=== PATIENT | male | born 1930 | race Caucasian/White ===

== ENCOUNTER 2016-04-17 13:05 | Outpatient (CLI) | payer MEDICARE, OTHER | END 2016-04-17 13:06 | disposition home or self-care (01) | DX: J44.9 Chronic obstructive pulmonary disease, unspecified (principal) ==

== ENCOUNTER 2016-04-29 07:02 | Outpatient (CLI) | payer MEDICARE, OTHER | END 2016-04-29 07:03 | disposition home or self-care (01) | DX: D64.9 Anemia, unspecified (principal); N18.3 Chronic kidney disease, stage 3 (moderate); I50.9 Heart failure, unspecified ==

== ENCOUNTER 2016-05-25 09:07 | Outpatient (CLI) | payer MEDICARE, OTHER | END 2016-05-25 09:08 | disposition home or self-care (01) | DX: I50.9 Heart failure, unspecified (principal) ==

== ENCOUNTER 2016-06-22 07:02 | Outpatient (CLI) | payer MEDICARE, OTHER | END 2016-06-22 07:03 | disposition home or self-care (01) | DX: C61 Malignant neoplasm of prostate (principal); Z79.01 Long term (current) use of anticoagulants; D64.9 Anemia, unspecified; I69.959 Hemiplegia and hemiparesis following unspecified cerebrovascular disease affecting unspecified side; I50.9 Heart failure, unspecified; M10.9 Gout, unspecified ==

== ENCOUNTER 2016-07-23 08:49 | Outpatient (CLI) | payer MEDICARE, OTHER | END 2016-07-23 08:50 | disposition home or self-care (01) | DX: I50.9 Heart failure, unspecified (principal); R06.00 Dyspnea, unspecified; Z79.01 Long term (current) use of anticoagulants ==

== ENCOUNTER 2016-09-28 15:38 | Outpatient (CLI) | payer MEDICARE, OTHER ==
[2016-09-28 12:14] LABS: CALCIUM 9.1 mg/dL (8.5-10.3); CREATININE 1.5 mg/dL (0.6-1.2); PHOSPHORUS 3.3 mg/dL (2.5-4.6); POTASSIUM 3.9 mmol/L (3.5-5.0)
== END 2016-09-28 15:39 | disposition home or self-care (01) ==
LOC: LAB.F 15:38
PROVIDERS: ATTEND Internal Medicine Nephrology
DX: D64.9 Anemia, unspecified (principal)
CPT/HCPCS: 36415; 80069; 83970; 85014; 85018

== ENCOUNTER 2016-10-07 11:08 | Outpatient (CLI) | payer MEDICARE, OTHER | END 2016-10-07 11:09 | disposition home or self-care (01) | LOC: LAB.F 11:08 | PROVIDERS: ATTEND Physician Assistant Medical | DX: Z79.01 Long term (current) use of anticoagulants (principal) | CPT/HCPCS: 85610 ==

== ENCOUNTER 2016-11-16 07:03 | Outpatient (CLI) | payer MEDICARE, OTHER | END 2016-11-16 07:04 | disposition home or self-care (01) | LOC: LAB 07:03 → LAB.F 07:04 | PROVIDERS: ATTEND Internal Medicine | DX: Z79.01 Long term (current) use of anticoagulants (principal) | CPT/HCPCS: 85610 ==

== ENCOUNTER 2016-12-16 08:25 | Outpatient (CLI) | payer MEDICARE, OTHER | END 2016-12-16 08:26 | disposition home or self-care (01) | LOC: LAB.F 08:25 | PROVIDERS: ATTEND Internal Medicine | DX: Z79.01 Long term (current) use of anticoagulants (principal); I69.959 Hemiplegia and hemiparesis following unspecified cerebrovascular disease affecting unspecified side | CPT/HCPCS: 85610 ==

== ENCOUNTER 2016-12-22 08:45 | Outpatient (CLI) | payer MEDICARE, OTHER ==
[2016-12-22 18:29] LABS: BASOPHILS % (AUTO) 0.8 %; EOSINOPHILS # (AUTO) 0.1 10^3/uL (0.0-0.7); EOSINOPHILS % (AUTO) 2.5 %; LYMPHOCYTES # (AUTO) 1.2 10^3/uL (1.5-3.5); LYMPHOCYTES % (AUTO) 20.7 %; MEAN CORPUSCULAR HEMOGLOBIN 29.4 pg (27.0-31.0); MEAN CORPUSCULAR HGB CONC 33.5 g/dL (32.0-36.0); MEAN CORPUSCULAR VOLUME 87.9 fL (80.0-94.0); MEAN PLATELET VOLUME 7.6 fL (7.4-11.4); MONOCYTES # (AUTO) 0.6 10^3/uL (0.0-1.0); MONOCYTES % (AUTO) 10.5 %; NEUTROPHILS # (AUTO) 3.8 10^3/uL (1.5-6.6); NEUTROPHILS % (AUTO) 65.5 %; NUCLEATED RED BLOOD CELLS AUTO 0.1 /100WBC; RED BLOOD COUNT 3.75 10^6/uL (4.70-6.10); RED CELL DISTRIBUTION WIDTH 15.2 % (12.0-15.0); UNCORRECTED WHITE BLOOD COUNT 5.8 x10^3/uL; WHITE BLOOD COUNT 5.8 x10^3/uL (4.8-10.8)
[2016-12-22 18:34] LABS: INR 1.7 (0.8-1.2); PT - PROTHROMBIN TIME 19.4 secs (9.9-12.6)
[2016-12-22 18:40] LABS: CALCIUM 8.6 mg/dL (8.5-10.3); CREATININE 1.3 mg/dL (0.6-1.2); POTASSIUM 3.8 mmol/L (3.5-5.0)
[2016-12-22 18:42] LABS: PARTIAL THROMBOPLASTIN TIME 31.2 secs (24.9-33.3)
[2016-12-23 10:45] LABS: IMMATURE RETIC FRACTION 0.47
== END 2016-12-22 08:46 | disposition home or self-care (01) ==
LOC: LAB.F 08:45
PROVIDERS: ATTEND Internal Medicine
DX: K92.1 Melena (principal); I10 Essential (primary) hypertension; D63.1 Anemia in chronic kidney disease
CPT/HCPCS: 36415; 80048; 82728; 83540; 84466; 85025; 85044; 85610; 85730

== ENCOUNTER 2017-01-12 07:53 | Outpatient (CLI) | payer MEDICARE, OTHER | END 2017-01-12 07:54 | disposition home or self-care (01) | LOC: LAB.F 07:53 | PROVIDERS: ATTEND Internal Medicine | DX: Z79.01 Long term (current) use of anticoagulants (principal); I69.959 Hemiplegia and hemiparesis following unspecified cerebrovascular disease affecting unspecified side | CPT/HCPCS: 85610 ==

== ENCOUNTER 2017-01-12 08:50 | Outpatient (CLI) | payer MEDICARE, OTHER ==
[2017-01-12 11:55] LABS: BASOPHILS % (AUTO) 0.6 %; EOSINOPHILS # (AUTO) 0.2 10^3/uL (0.0-0.7); EOSINOPHILS % (AUTO) 3.1 %; HCT - HEMATOCRIT 33.7 % (42.0-52.0); HGB - HEMOGLOBIN 11.4 g/dL (14.0-18.0); LYMPHOCYTES # (AUTO) 1.4 10^3/uL (1.5-3.5); MEAN CORPUSCULAR HEMOGLOBIN 29.5 pg (27.0-31.0); MEAN CORPUSCULAR HGB CONC 33.8 g/dL (32.0-36.0); MEAN CORPUSCULAR VOLUME 87.2 fL (80.0-94.0); MEAN PLATELET VOLUME 8.8 fL (7.4-11.4); MONOCYTES # (AUTO) 0.8 10^3/uL (0.0-1.0); MONOCYTES % (AUTO) 10.6 %; NEUTROPHILS # (AUTO) 5.1 10^3/uL (1.5-6.6); NEUTROPHILS % (AUTO) 67.7 %; NUCLEATED RED BLOOD CELLS AUTO 0.1 /100WBC; RED BLOOD COUNT 3.86 10^6/uL (4.70-6.10); RED CELL DISTRIBUTION WIDTH 16.1 % (12.0-15.0); UNCORRECTED WHITE BLOOD COUNT 7.6 x10^3/uL; WHITE BLOOD COUNT 7.6 x10^3/uL (4.8-10.8)
== END 2017-01-12 08:51 | disposition home or self-care (01) ==
LOC: LAB.F 08:50
PROVIDERS: ATTEND Internal Medicine
DX: K92.1 Melena (principal); Z79.01 Long term (current) use of anticoagulants; I69.959 Hemiplegia and hemiparesis following unspecified cerebrovascular disease affecting unspecified side
CPT/HCPCS: 36415; 85025; 85610

== ENCOUNTER 2017-01-25 09:16 | Outpatient (CLI) | payer MEDICARE, OTHER | END 2017-01-25 09:17 | disposition home or self-care (01) | LOC: LAB.F 09:16 | PROVIDERS: ATTEND Internal Medicine | DX: Z79.01 Long term (current) use of anticoagulants (principal); I69.959 Hemiplegia and hemiparesis following unspecified cerebrovascular disease affecting unspecified side | CPT/HCPCS: 85610 ==

== ENCOUNTER 2017-02-10 10:57 | Outpatient (CLI) | payer MEDICARE, OTHER | END 2017-02-10 10:58 | disposition home or self-care (01) | LOC: LAB.F 10:57 | PROVIDERS: ATTEND Physician Assistant Medical | DX: Z79.01 Long term (current) use of anticoagulants (principal); I50.9 Heart failure, unspecified | CPT/HCPCS: 85610 ==

== ENCOUNTER 2017-02-25 15:12 | Outpatient (CLI) | payer MEDICARE, OTHER ==
--- NOTE | 2017-02-26 09:52 | XRAY Report ---
TWO-VIEW CHEST: 02/25/2017 CLINICAL INDICATION: Chest pain. COMPARISON: 04/17/2016 FINDINGS: Frontal and lateral views of the chest demonstrate changes of previous cardiac surgery. T he lungs are hyperinflated, compatible with COPD. Changes of previous cardiac surgery are stable. N o new consolidation, effusion, or pneumothorax is present. IMPRESSION: HYPERINFLATION, COMPATIBLE WITH COPD. CHANGES OF CARDIAC SURGERY. NO NEW INFILTRATE. JOB #: [id number] EXT JOB #:[id number]
== END 2017-02-25 15:13 | disposition home or self-care (01) ==
LOC: DI 15:12
PROVIDERS: ATTEND Internal Medicine Critical Care Medicine
DX: R07.9 Chest pain, unspecified (principal)
CPT/HCPCS: 71020

== ENCOUNTER 2017-03-17 08:13 | Outpatient (CLI) | payer MEDICARE, OTHER | END 2017-03-17 08:14 | disposition home or self-care (01) | LOC: LAB.F 08:13 | PROVIDERS: ATTEND Physician Assistant Medical | DX: I50.9 Heart failure, unspecified (principal); Z79.01 Long term (current) use of anticoagulants | CPT/HCPCS: 85610 ==

== ENCOUNTER 2017-04-01 15:16 | Outpatient (CLI) | payer MEDICARE, OTHER | END 2017-04-01 15:17 | disposition home or self-care (01) | LOC: LAB.F 15:16 | PROVIDERS: ATTEND Physician Assistant Medical | DX: Z79.01 Long term (current) use of anticoagulants (principal); I50.9 Heart failure, unspecified | CPT/HCPCS: 85610 ==

== ENCOUNTER 2017-04-08 09:36 | Outpatient (CLI) | payer MEDICARE, OTHER | END 2017-04-08 09:37 | disposition home or self-care (01) | LOC: LAB.F 09:36 | PROVIDERS: ATTEND Physician Assistant Medical | DX: Z79.01 Long term (current) use of anticoagulants (principal); I50.9 Heart failure, unspecified | CPT/HCPCS: 85610 ==

== ENCOUNTER 2017-04-12 07:58 | Outpatient (CLI) | payer MEDICARE, OTHER ==
[2017-04-12] MEDS ORDERED: IOPAMIDOL-300 100 ML VIAL ONE (08:27)
[2017-04-12] MEDS ORDERED: IOPAMIDOL-300 50 ML VIAL ONE (08:27)
[2017-04-12] MEDS ORDERED: IOPAMIDOL-300 100 ML VIAL IVP ONE ×2 (10:10)
[2017-04-12] MEDS ORDERED: IOPAMIDOL-300 50 ML VIAL PO ONE (10:10)
--- NOTE | 2017-04-12 16:20 | CT Report ---
DATE OF SERVICE: 04/12/2017 CT CHEST WITH CONTRAST: 04/12/2017 CLINICAL INDICATION: Rectal mass, staging TECHNIQUE: Axial CT images of the chest were obtained with 50 mL Isovue 300 intravenously. COMPARISON: 02/02/2012. FINDINGS: The heart and great vessels again demonstrate atherosclerotic calcification. Aortic atherosclerosis and distal intraluminal thrombus appear unchanged. No hilar or mediastinal lymphadenopathy is present. Postoperative changes of cardiac surgery are stable. No suspicious pulmonary nodule or mass lesion is seen. Minimal dependent atelectasis is present. No effusion or pneumothorax. IMPRESSION: NO EVIDENCE OF METASTATIC DISEASE WITHIN THE THORAX. In accordance with CT protocol optimization, one or more of the following dose reduction techniques were utilized for this exam: automated exposure control, adjustment of mA and/or KV based on patient size, or use of iterative reconstructive technique. TD: 04/12/2017 17:20
--- NOTE | 2017-04-12 16:25 | CT Report ---
DATE OF SERVICE: 04/12/2017 CT ABDOMEN AND PELVIS WITH CONTRAST: 04/12/2017 CLINICAL INDICATION: Rectal mass. COMPARISON: 09/02/2015 TECHNIQUE: Axial CT images of the abdomen and pelvis were obtained with 50 mL Isovue 300 intravenously as well as oral contrast. FINDINGS: ABDOMEN: The liver demonstrates stable cysts. No solid hepatic lesion or intrahepatic biliary dilatation is seen. Cholelithiasis is again noted. The pancreas, spleen, and adrenal glands are unremarkable. The kidneys demonstrate cortical cysts. No hydronephrosis or solid renal lesion is appreciated. No bowel dilatation, free gas, or free fluid is present. No abdominal adenopathy is seen. 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 PELVIS: Urinary bladder demonstrates a right-sided Hutch diverticulum. No pelvic adenopathy or free fluid is present. The described rectal mass is not confidently identified on CT. No pelvic adenopathy or free fluid is noted. Osseous structures demonstrate degenerative changes. IMPRESSION: 1. NO DEFINITE EVIDENCE OF METASTATIC DISEASE. 2. 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 In accordance with CT protocol optimization, one or more of the following dose reduction techniques were utilized for this exam: automated exposure control, adjustment of mA and/or KV based on patient size, or use of iterative reconstructive technique. TD: 04/12/2017 17:24
== END 2017-04-12 07:59 | disposition home or self-care (01) ==
LOC: DI 07:58
PROVIDERS: ATTEND Surgery
DX: K62.9 Disease of anus and rectum, unspecified (principal); I71.4 Abdominal aortic aneurysm, without rupture
CPT/HCPCS: 71260; 74177; Q9967

== ENCOUNTER 2017-04-15 09:13 | Outpatient (CLI) | payer MEDICARE, OTHER | END 2017-04-15 09:14 | disposition home or self-care (01) | LOC: LAB.F 09:13 | PROVIDERS: ATTEND Physician Assistant Medical | DX: Z79.01 Long term (current) use of anticoagulants (principal); I50.9 Heart failure, unspecified | CPT/HCPCS: 85610 ==

== ENCOUNTER 2017-04-22 09:37 | Outpatient (CLI) | payer MEDICARE, OTHER | END 2017-04-22 09:38 | disposition home or self-care (01) | LOC: LAB.F 09:37 | PROVIDERS: ATTEND Physician Assistant Medical | DX: Z79.01 Long term (current) use of anticoagulants (principal); I50.9 Heart failure, unspecified | CPT/HCPCS: 85610 ==

== ENCOUNTER 2017-05-16 21:53 | Emergency (ER) | payer MEDICARE, OTHER ==
[2017-05-16] MEDS ORDERED: IPRATROPIUM/ALBUTEROL 3 ML NEB INH STA (22:21)
[2017-05-16 22:43] LABS: BASOPHILS # (AUTO) 0.1 10^3/uL (0.0-0.1); BASOPHILS % (AUTO) 0.9 %; EOSINOPHILS # (AUTO) 0.2 10^3/uL (0.0-0.7); EOSINOPHILS % (AUTO) 3.1 %; LYMPHOCYTES # (AUTO) 1.7 10^3/uL (1.5-3.5); LYMPHOCYTES % (AUTO) 23.7 %; MEAN CORPUSCULAR HEMOGLOBIN 29.2 pg (27.0-31.0); MEAN CORPUSCULAR VOLUME 88.4 fL (80.0-94.0); MEAN PLATELET VOLUME 7.3 fL (7.4-11.4); MONOCYTES # (AUTO) 0.9 10^3/uL (0.0-1.0); MONOCYTES % (AUTO) 12.1 %; NEUTROPHILS # (AUTO) 4.4 10^3/uL (1.5-6.6); NEUTROPHILS % (AUTO) 60.2 %; PLT - PLATELET COUNT 228 10^3/uL (130-450); RED BLOOD COUNT 3.41 10^6/uL (4.70-6.10); RED CELL DISTRIBUTION WIDTH 16.5 % (12.0-15.0); WHITE BLOOD COUNT 7.3 x10^3/uL (4.8-10.8)
[2017-05-16 22:49] LABS: INR 1.1 (0.8-1.2); PT - PROTHROMBIN TIME 12.4 secs (9.9-12.6)
--- NOTE | 2017-05-17 02:07 | ED Physician Documentation ---
PD HPI GI BLEED - Stated complaint Stated Complaint: MALE - Chief complaint Chief Complaint: Abd Pain - History obtained from History obtained from: Patient, Family () - History of Present Illness Timing - onset: How many hours ago (1.5) Timing - details: Still present Associated symptoms: BRBPR Contributing factors: Anticoagulated, Other (Recent rectal surgery.) Recently seen: Surgery (1 week status post endoscopic transanal microsurgery for removal of rectal mass.) - Additional information Additional information: The patient is an 86-year-old male who presents with bright red blood per rectum that started about 1-1/2 hours prior to arrival while he was doing a sitz bath. He is 1 week status post endoscopic transanal microsurgery for removal of rectal mass. He has been taking Lovenox injections since surgery, and resumed his warfarin therapy yesterday. He denies rectal pain, abdominal pain, fever, nausea or vomiting, dysuria, or lightheadedness. He has had cough today, mildly productive of sputum. Past medical history is significant for CVA in 2011, and for COPD. Review of Systems Constitutional: denies: Fever Nose: denies: Congestion Throat: denies: Sore throat Cardiac: denies: Chest pain / pressure Respiratory: reports: Cough. denies: Dyspnea GI: reports: Bloody / black stool. denies: Abdominal Pain, Nausea, Vomiting : denies: Dysuria Skin: denies: Rash Musculoskeletal: denies: Back pain Neurologic: denies: Headache PD PAST MEDICAL HISTORY - Past Medical History Past Medical History: Yes Cardiovascular: Hypertension, MT Respiratory: Asthma, COPD, Emphysema Neuro: CVA Endocrine/Autoimmune: None : Renal insuffiency Musculoskeletal: Osteoarthritis - Past Surgical History General: Bowel surgery (1 week S/P endoscopic transanal microsurgery for resection of rectal mass.) Cardiovascular: CABG, AAA, Other - Present Medications Home Medications: Ambulatory Orders Medication Instructions Recorded Confirmed Atorvastatin [Lipitor] 20 mg PO DAILY 09/02/15 09/02/15 Calcium Carb/Vitamin D3/Vit K1 1 tab PO DAILY 09/02/15 09/02/15 [Eql Calcium Soft Tab Chew] Cyanocobalamin (Vitamin B-12) 500 mcg PO DAILY 09/02/15 09/02/15 [Vitamin B-12] Fluticasone/Salmeterol [Advair 1 puffs INH DAILY 09/02/15 09/02/15 250-50 Diskus] Furosemide [Lasix] 1 tab PO DAILY 09/02/15 09/02/15 Lisinopril 1 tab PO DAILY 09/02/15 09/02/15 Metoprolol Succinate 1 tab PO DAILY 09/02/15 09/02/15 Potassium Chloride [K-Dur] 1 tab PO DAILY 09/02/15 09/02/15 Warfarin [Coumadin] 1 tab PO DAILY 09/02/15 09/02/15 amLODIPine [Norvasc] 10 mg PO DAILY 09/02/15 09/02/15 - Allergies Allergies/Adverse Reactions: Allergies Allergy/AdvReac Type Severity Reaction Status Date / Time No Known Drug Allergies Allergy Verified 05/16/17 22:01 - Living Situation Living Situation: reports: With spouse/s.o. Living Arrangement: reports: At home - Social History Does the pt smoke?: No Smoking Status: Never smoker Does the pt drink ETOH?: No Does the pt have substance abuse?: No - Immunizations Immunizations are current?: Yes PD ED PE NORMAL - Vitals Vital signs reviewed: Yes (hypertensive initially.) - General General: Alert and oriented X 3, Well developed/nourished - HEENT HEENT: Atraumatic, Moist mucous membranes, Pharynx benign - Neck Neck: No adenopathy, No JVD - Cardiac Cardiac: RRR - Respiratory Respiratory: Other (Coarse sounding cough, with diffuse expiratory wheezing on auscultation.) - Abdomen Abdomen: Normal bowel sounds, Soft, Non tender, Other (Rotund abdomen.) - Rectal Rectal: Other (Bright red blood at anal opening.) - Back Back: No CVA TTP - Derm Derm: No rash - Extremities Extremities: No edema, No calf tenderness / cord - Neuro Neuro: Alert and oriented X 3, Normal speech, Other (Right sided weakness ( chronic).) Results - Vitals Vitals: Vital Signs - 24 hr 05/16/17 05/16/17 05/16/17 21:55 22:21 23:30 Temperature 36.4 C L Heart Rate 56 L 54 L 57 L Respiratory 18 16 16 Rate Blood Pressure 153/84 H 132/78 H 120/74 O2 Saturation 98 97 96 05/17/17 05/17/17 05/17/17 01:26 01:27 02:19 Temperature Heart Rate 56 L 57 L 54 L Respiratory 16 16 Rate Blood Pressure 145/83 H 135/89 H O2 Saturation 94 98 96 Oxygen O2 Source Room air - Labs Labs: Laboratory Tests 05/16/17 05/16/17 22:37 22:37 WBC 7.3 RBC 3.41 L Hgb 10.0 L Hct 30.2 L MCV 88.4 MCH 29.2 MCHC 33.0 RDW 16.5 H Plt Count 228 MPV 7.3 L Neut # 4.4 Lymph # 1.7 Wilkin # 0.9 Eos # 0.2 Baso # 0.1 Absolute Nucleated RBC 0.01 Nucleated RBC % 0.1 PT 12.4 INR 1.1 PD MEDICAL DECISION MAKING - ED course Complexity details: reviewed results, re-evaluated patient, considered differential, d/w patient, d/w family, d/w multi site leasing consultant ED course: The patient's presentation is significant for rectal bleeding one-week status post microsurgery for removal of rectal mass. His hemoglobin and hematocrit are adequate at 10.0 in 30.2. In discussion with the surgeon family practice nurse practitioner, I learned that this is an improvement from his postprocedure hematocrit of 27. His INR is subtherapeutic at 1.1. While in the emergency department the patient had 3 episodes of passing very small amounts of right red blood over a period of 3 hours. There was no associated pain, no lightheadedness, and a subsequent episode resulted in passage of a smaller amount of blood. Treatment in the emergency department included administration of DuoNeb nebulizer, which cleared his wheezing and improved his air movement as well as diminished his cough. I discussed his condition with Dr. Choi who is on-call for his surgeon, Dr. Le. She advises that the patient should follow up in clinic on Wednesday, or call sooner if he develops increased bleeding or otherwise worsening symptoms. I discussed this with the patient and his who express agreement. He will discontinue Lovenox, and will hold warfarin for the next 2 days. Departure - Departure Disposition: Home, Self Care Clinical Impression: Rectal bleeding, History of rectal surgery, COPD exacerbation Condition: Stable Instructions: ED Hematochezia Stable Follow-Up: VAUGHN LE MD [Physician No Access] - Yanely Adams PA-C [Primary Care Provider] - Comments: Discontinue enoxaparin. Hold warfarin for the next 2 days. Follow up with Dr. Le on Wednesday. You can call Dr. Le's partner, Dr. Choi, tomorrow if you have persistent rectal bleeding. The direct office number is [phone]. Return to the emergency department if you develop increasing rectal bleeding, lightheadedness, or otherwise worsening symptoms. Discharge Date/Time: 05/17/17 02:20
[2017-05-17 02:20] VITALS: BP 135/89
== END 2017-05-17 02:20 | disposition home or self-care (01) ==
LOC: ED 21:53
DX: K62.5 Hemorrhage of anus and rectum (principal); J44.1 Chronic obstructive pulmonary disease with (acute) exacerbation; I25.2 Old myocardial infarction; I10 Essential (primary) hypertension; Z86.73 Personal history of transient ischemic attack (TIA), and cerebral infarction without residual deficits; Z95.1 Presence of aortocoronary bypass graft; Z79.01 Long term (current) use of anticoagulants
CPT/HCPCS: 36415; 85025; 85610; 94640; 99283; 99284; J7620

== ENCOUNTER 2017-05-21 09:57 | Outpatient (CLI) | payer MEDICARE, OTHER | END 2017-05-21 09:58 | disposition home or self-care (01) | LOC: LAB.F 09:57 | PROVIDERS: ATTEND Physician Assistant Medical | DX: Z79.01 Long term (current) use of anticoagulants (principal); I50.9 Heart failure, unspecified | CPT/HCPCS: 85610 ==

== ENCOUNTER 2017-05-24 08:43 | Outpatient (CLI) | payer MEDICARE, OTHER | END 2017-05-24 08:44 | disposition home or self-care (01) | LOC: LAB.F 08:43 | PROVIDERS: ATTEND Physician Assistant Medical | DX: I50.9 Heart failure, unspecified (principal); Z79.01 Long term (current) use of anticoagulants | CPT/HCPCS: 85610 ==

== ENCOUNTER 2017-05-27 08:00 | Outpatient (CLI) | payer MEDICARE, OTHER | END 2017-05-27 23:59 | disposition home or self-care (01) | LOC: LAB.F 08:00 | PROVIDERS: ATTEND Physician Assistant Medical | DX: Z79.01 Long term (current) use of anticoagulants (principal); I50.9 Heart failure, unspecified | CPT/HCPCS: 85610 ==

== ENCOUNTER 2017-06-03 07:43 | Outpatient (CLI) | payer MEDICARE, OTHER | END 2017-06-03 07:44 | disposition home or self-care (01) | LOC: LAB.F 07:43 | PROVIDERS: ATTEND Physician Assistant Medical | DX: I50.9 Heart failure, unspecified (principal); Z79.01 Long term (current) use of anticoagulants | CPT/HCPCS: 85610 ==

== ENCOUNTER 2017-06-10 08:04 | Outpatient (CLI) | payer MEDICARE, OTHER ==
[2017-06-10 12:36] LABS: BASOPHILS # (AUTO) 0.1 10^3/uL (0.0-0.1); BASOPHILS % (AUTO) 0.9 %; EOSINOPHILS # (AUTO) 0.2 10^3/uL (0.0-0.7); EOSINOPHILS % (AUTO) 2.8 %; HGB - HEMOGLOBIN 9.7 g/dL (14.0-18.0); LYMPHOCYTES # (AUTO) 1.5 10^3/uL (1.5-3.5); LYMPHOCYTES % (AUTO) 18.9 %; MEAN CORPUSCULAR VOLUME 88.3 fL (80.0-94.0); MONOCYTES # (AUTO) 0.9 10^3/uL (0.0-1.0); MONOCYTES % (AUTO) 11.7 %; NEUTROPHILS # (AUTO) 5.1 10^3/uL (1.5-6.6); NEUTROPHILS % (AUTO) 65.7 %; PLT - PLATELET COUNT 186 10^3/uL (130-450); RED BLOOD COUNT 3.23 10^6/uL (4.70-6.10); RED CELL DISTRIBUTION WIDTH 17.7 % (12.0-15.0); WHITE BLOOD COUNT 7.7 x10^3/uL (4.8-10.8)
[2017-06-10 13:06] LABS: ALBUMIN 3.4 g/dL (3.2-5.5); CALCIUM 8.2 mg/dL (8.5-10.3); CREATININE 1.6 mg/dL (0.6-1.2); PHOSPHORUS 3.3 mg/dL (2.5-4.6)
== END 2017-06-10 08:05 | disposition home or self-care (01) ==
LOC: LAB.F 08:04
PROVIDERS: ATTEND Internal Medicine Nephrology
DX: D64.9 Anemia, unspecified (principal); I12.9 Hypertensive chronic kidney disease with stage 1 through stage 4 chronic kidney disease, or unspecified chronic kidney disease; N18.3 Chronic kidney disease, stage 3 (moderate); E87.6 Hypokalemia; Z76.89 Persons encountering health services in other specified circumstances; I69.959 Hemiplegia and hemiparesis following unspecified cerebrovascular disease affecting unspecified side; D63.1 Anemia in chronic kidney disease; K92.1 Melena
CPT/HCPCS: 36415; 80069; 83540; 85025; 85610

== ENCOUNTER 2017-06-14 10:34 | Outpatient (CLI) | payer MEDICARE, OTHER ==
--- NOTE | 2017-06-14 13:23 | XRAY Report ---
TWO VIEW RIGHT KNEE: 06/14/2017 CLINICAL INDICATION: Pain. FINDINGS: Frontal and lateral views of the right knee demonstrate mild osteoarthritis. A small effusion is present. Vascular calcifications are noted. There is no evidence of acute fracture or dislocation. IMPRESSION: MILD OSTEOARTHRITIS, WITH A SMALL EFFUSION. TD: 06/14/2017 13:22
== END 2017-06-14 10:35 | disposition home or self-care (01) ==
LOC: DI 10:34
PROVIDERS: ATTEND Internal Medicine
DX: M17.11 Unilateral primary osteoarthritis, right knee (principal); M25.461 Effusion, right knee

== ENCOUNTER 2017-06-17 13:35 | Outpatient (CLI) | payer MEDICARE, OTHER | END 2017-06-17 13:36 | disposition home or self-care (01) | LOC: LAB.F 13:35 | PROVIDERS: ATTEND Physician Assistant Medical | DX: Z79.01 Long term (current) use of anticoagulants (principal); I50.9 Heart failure, unspecified | CPT/HCPCS: 85610 ==

== ENCOUNTER 2017-06-25 16:06 | Outpatient (CLI) | payer MEDICARE, OTHER | END 2017-06-25 16:07 | disposition home or self-care (01) | LOC: LAB.F 16:06 | PROVIDERS: ATTEND Physician Assistant Medical | DX: Z79.01 Long term (current) use of anticoagulants (principal); I50.9 Heart failure, unspecified | CPT/HCPCS: 85610 ==

== ENCOUNTER 2017-07-02 08:19 | Outpatient (CLI) | payer MEDICARE, OTHER | END 2017-07-02 08:20 | disposition home or self-care (01) | LOC: LAB.F 08:19 | PROVIDERS: ATTEND Physician Assistant Medical | DX: Z79.01 Long term (current) use of anticoagulants (principal); I50.9 Heart failure, unspecified | CPT/HCPCS: 85610 ==

== ENCOUNTER 2017-07-05 14:28 | Outpatient (CLI) | payer MEDICARE, OTHER | END 2017-07-05 14:29 | disposition home or self-care (01) | LOC: LAB.F 14:28 | PROVIDERS: ATTEND Physician Assistant Medical | DX: Z79.01 Long term (current) use of anticoagulants (principal); I50.9 Heart failure, unspecified | CPT/HCPCS: 85610 ==

== ENCOUNTER 2017-07-10 11:01 | Outpatient (CLI) | payer MEDICARE, OTHER | END 2017-07-10 11:02 | disposition home or self-care (01) | LOC: DI 11:01 | PROVIDERS: ATTEND Internal Medicine Cardiovascular Disease | DX: I25.10 Atherosclerotic heart disease of native coronary artery without angina pectoris (principal); I77.810 Thoracic aortic ectasia; I34.0 Nonrheumatic mitral (valve) insufficiency | CPT/HCPCS: 93306 ==

== ENCOUNTER 2017-08-11 14:54 | Outpatient (CLI) | payer MEDICARE, OTHER ==
--- NOTE | 2017-08-12 07:46 | Ultrasound Report ---
EXAM: RIGHT LOWER EXTREMITY VENOUS ULTRASOUND EXAM DATE: 08/11/2017 04:40 PM. CLINICAL HISTORY: RT LEG SWELLING AFTER FALL. COMPARISON: None. TECHNIQUE: Real-time sonographic vascular imaging was performed by the wire twisting machine operator through the lower extremity utilizing both color-flow and Doppler spectral analysis. Multiple front office representative static los ges were saved for review. FINDINGS: Common Femoral Vein (CFV): Normal. CFV-GSV Junction: Normal. Profunda Femoral Vein (PFV): Normal. Femoral Vein (FV) Prox: Normal. Femoral Vein (FV) Mid: Normal. Femoral Vein (FV) Dist: Normal. Popliteal Vein: Normal. Posterior Tibial Veins: Not well visualized. Peroneal Veins: Not well visualized. Other: None. IMPRESSION: No evidence for deep venous thrombosis in the right lower extremity. [facility] Referring Provider Line: [phone] SITE ID: [id number]
== END 2017-08-11 14:55 | disposition home or self-care (01) ==
LOC: DI 14:54
PROVIDERS: ATTEND Internal Medicine Cardiovascular Disease
DX: M79.89 Other specified soft tissue disorders (principal); Z91.81 History of falling

== ENCOUNTER 2017-08-27 09:26 | Outpatient (CLI) | payer MEDICARE, OTHER | END 2017-08-27 09:27 | disposition home or self-care (01) | LOC: LAB.F 09:26 | PROVIDERS: ATTEND Urology | DX: C61 Malignant neoplasm of prostate (principal) ==

== ENCOUNTER 2017-08-27 09:29 | Outpatient (CLI) | payer MEDICARE, OTHER | END 2017-08-27 09:30 | disposition home or self-care (01) | LOC: LAB.F 09:29 | PROVIDERS: ATTEND Urology | DX: C61 Malignant neoplasm of prostate (principal) | CPT/HCPCS: 36415; 84153 ==

== ENCOUNTER 2017-09-03 11:08 | Outpatient (CLI) | payer MEDICARE, OTHER ==
[2017-09-03 18:12] LABS: BASOPHILS % (AUTO) 0.4 %; EOSINOPHILS # (AUTO) 0.2 10^3/uL (0.0-0.7); EOSINOPHILS % (AUTO) 2.6 %; HGB - HEMOGLOBIN 10.8 g/dL (14.0-18.0); LYMPHOCYTES # (AUTO) 1.2 10^3/uL (1.5-3.5); LYMPHOCYTES % (AUTO) 16.3 %; MEAN CORPUSCULAR HEMOGLOBIN 29.6 pg (27.0-31.0); MEAN CORPUSCULAR VOLUME 89.6 fL (80.0-94.0); MEAN PLATELET VOLUME 7.6 fL (7.4-11.4); MONOCYTES # (AUTO) 0.6 10^3/uL (0.0-1.0); MONOCYTES % (AUTO) 9.1 %; NEUTROPHILS # (AUTO) 5.1 10^3/uL (1.5-6.6); NEUTROPHILS % (AUTO) 71.6 %; PLT - PLATELET COUNT 225 10^3/uL (130-450); RED BLOOD COUNT 3.64 10^6/uL (4.70-6.10); RED CELL DISTRIBUTION WIDTH 15.9 % (12.0-15.0); WHITE BLOOD COUNT 7.1 x10^3/uL (4.8-10.8)
[2017-09-03 18:29] LABS: ALBUMIN 3.7 g/dL (3.2-5.5); ALBUMIN/GLOBULIN RATIO 0.9 (1.0-2.2); ALKALINE PHOSPHATASE 69 IU/L (42-121); ALT ALANINE AMINOTRANSFERASE < 10 IU/L (10-60); AST ASPARTATE AMINOTRANSFERASE 14 IU/L (10-42); BILIRUBIN,TOTAL 0.6 mg/dL (0.2-1.0); BUN - BLOOD UREA NITROGEN 25 mg/dL (6-20); CALCIUM 8.8 mg/dL (8.5-10.3); CARBON DIOXIDE - CO2 24 mmol/L (21-32); CHLORIDE 103 mmol/L (101-111); CREATININE 1.5 mg/dL (0.6-1.2); GFR - MDRD 44 (>89); GLUCOSE 99 mg/dL (70-100); SODIUM 136 mmol/L (135-145); TOTAL PROTEIN 7.8 g/dL (6.7-8.2)
[2017-09-03 18:33] LABS: PLATELET ESTIMATE, MANUAL NORMAL (130-450,000) (NORMAL); PLATELET MORPHOLOGY NORMAL APPEARANCE (NORMAL)
== END 2017-09-03 11:09 | disposition home or self-care (01) ==
LOC: LAB.F 11:08
PROVIDERS: ATTEND Internal Medicine
DX: R42 Dizziness and giddiness (principal)
CPT/HCPCS: 36415; 80053; 84443; 85025

== ENCOUNTER 2017-11-30 09:42 | Outpatient (CLI) | payer MEDICARE, OTHER ==
[2017-11-30 18:16] LABS: BILIRUBIN,URINE NEGATIVE (NEGATIVE); GLUCOSE, URINE (UA) NEGATIVE (NEGATIVE); KETONES,URINE (UA) NEGATIVE (NEGATIVE); LEUKOCYTE ESTERASE, URINE NEGATIVE (NEGATIVE); NITRITE,URINE NEGATIVE (NEGATIVE); OCCULT BLOOD,URINE NEGATIVE (NEGATIVE); PH,URINE 5.5 PH (5.0-7.5); PROTEIN,URINE TRACE mg/dL (NEGATIVE); UROBILINOGEN,URINE 0.2 (NORMAL) E.U./dL (NORMAL)
[2017-11-30 18:17] LABS: CLARITY,URINE CLEAR (CLEAR)
[2017-11-30 18:29] LABS: CREATININE,URINE 56.8 mg/dL; PROTEIN/CREATININE RATIO,URINE 0.5 (<=0.2)
[2017-11-30 20:24] LABS: ALBUMIN 3.9 g/dL (3.2-5.5); CALCIUM 8.8 mg/dL (8.5-10.3); CREATININE 1.5 mg/dL (0.6-1.2); PHOSPHORUS 3.1 mg/dL (2.5-4.6)
== END 2017-11-30 09:43 | disposition home or self-care (01) ==
LOC: LAB.F 09:42
PROVIDERS: ATTEND Internal Medicine Nephrology
DX: E78.5 Hyperlipidemia, unspecified (principal); D64.9 Anemia, unspecified; I13.0 Hypertensive heart and chronic kidney disease with heart failure and stage 1 through stage 4 chronic kidney disease, or unspecified chronic kidney disease; N18.3 Chronic kidney disease, stage 3 (moderate); I50.9 Heart failure, unspecified; M10.9 Gout, unspecified
CPT/HCPCS: 36415; 80069; 81001; 81003; 82570; 83540; 83970; 84156; 84466; 85014; 87086

== ENCOUNTER 2018-04-13 14:20 | Outpatient (CLI) | payer MEDICARE, OTHER | END 2018-04-13 14:21 | disposition home or self-care (01) | LOC: LAB.F 14:20 | PROVIDERS: ATTEND Urology | DX: C61 Malignant neoplasm of prostate (principal) | CPT/HCPCS: 36415; 84153 ==

== ENCOUNTER 2018-07-07 10:24 | Outpatient (CLI) | payer MEDICARE, OTHER ==
[2018-07-07 17:46] LABS: BASOPHILS % (AUTO) 0.6 %; EOSINOPHILS # (AUTO) 0.2 10^3/uL (0.0-0.7); EOSINOPHILS % (AUTO) 3.1 %; LYMPHOCYTES # (AUTO) 1.2 10^3/uL (1.5-3.5); LYMPHOCYTES % (AUTO) 15.6 %; MEAN CORPUSCULAR HEMOGLOBIN 29.7 pg (27.0-31.0); MEAN CORPUSCULAR HGB CONC 33.1 g/dL (32.0-36.0); MEAN CORPUSCULAR VOLUME 89.6 fL (80.0-94.0); MEAN PLATELET VOLUME 7.8 fL (7.4-11.4); MONOCYTES # (AUTO) 0.7 10^3/uL (0.0-1.0); MONOCYTES % (AUTO) 9.5 %; NEUTROPHILS # (AUTO) 5.5 10^3/uL (1.5-6.6); NEUTROPHILS % (AUTO) 71.2 %; PLT - PLATELET COUNT 192 10^3/uL (130-450); RED BLOOD COUNT 3.37 10^6/uL (4.70-6.10); RED CELL DISTRIBUTION WIDTH 14.8 % (12.0-15.0); WHITE BLOOD COUNT 7.7 x10^3/uL (4.8-10.8)
[2018-07-07 18:05] LABS: BILIRUBIN,URINE NEGATIVE (NEGATIVE); GLUCOSE, URINE (UA) NEGATIVE (NEGATIVE); KETONES,URINE (UA) NEGATIVE (NEGATIVE); LEUKOCYTE ESTERASE, URINE NEGATIVE (NEGATIVE); NITRITE,URINE NEGATIVE (NEGATIVE); OCCULT BLOOD,URINE TRACE-INTA (NEGATIVE); PROTEIN,URINE 100 mg/dL (NEGATIVE); UROBILINOGEN,URINE 0.2 (NORMAL) E.U./dL (NORMAL)
[2018-07-07 18:06] LABS: CLARITY,URINE CLEAR (CLEAR)
[2018-07-07 18:13] LABS: ALBUMIN 3.3 g/dL (3.2-5.5); CALCIUM 8.5 mg/dL (8.5-10.3); CREATININE 1.4 mg/dL (0.6-1.2); PHOSPHORUS 3.5 mg/dL (2.5-4.6)
[2018-07-07 18:16] LABS: CREATININE,URINE 29.7 mg/dL; PROTEIN/CREATININE RATIO,URINE 3.4 (<=0.2)
[2018-07-07 18:17] LABS: BACTERIA,URINE None Seen /HPF (None Seen); RBC,URINE 0-5 /HPF (0-5); SQUAMOUS EPITHELIAL CELL,UR NONE SEEN (<= Few)
== END 2018-07-07 10:25 | disposition home or self-care (01) ==
LOC: LAB.F 10:24
PROVIDERS: ATTEND Urology
DX: N18.3 Chronic kidney disease, stage 3 (moderate) (principal); D63.1 Anemia in chronic kidney disease; C61 Malignant neoplasm of prostate; D64.9 Anemia, unspecified; I12.9 Hypertensive chronic kidney disease with stage 1 through stage 4 chronic kidney disease, or unspecified chronic kidney disease
CPT/HCPCS: 36415; 80048; 80069; 81001; 82570; 83540; 83970; 84153; 84156; 84466; 85025

== ENCOUNTER 2018-08-23 12:48 | Outpatient (CLI) | payer MEDICARE, OTHER | END 2018-08-23 12:49 | disposition home or self-care (01) | LOC: SC 12:48 | PROVIDERS: ATTEND Internal Medicine Pulmonary Disease | DX: G47.33 Obstructive sleep apnea (adult) (pediatric) (principal) | CPT/HCPCS: 99203; G0463; 99212 ==

== ENCOUNTER 2018-09-12 07:15 | Outpatient (CLI) | payer MEDICARE, OTHER ==
[2018-09-12 11:42] LABS: ALBUMIN 3.4 g/dL (3.2-5.5); CALCIUM 8.9 mg/dL (8.5-10.3); CREATININE 1.5 mg/dL (0.6-1.2); PHOSPHORUS 4.4 mg/dL (2.5-4.6)
[2018-09-12 11:48] LABS: CREATININE,URINE 67.1 mg/dL; PROTEIN/CREATININE RATIO,URINE 1.5 (<=0.2)
[2018-09-12 18:30] LABS: BILIRUBIN,URINE NEGATIVE (NEGATIVE); GLUCOSE, URINE (UA) NEGATIVE (NEGATIVE); KETONES,URINE (UA) NEGATIVE (NEGATIVE); LEUKOCYTE ESTERASE, URINE NEGATIVE (NEGATIVE); NITRITE,URINE NEGATIVE (NEGATIVE); OCCULT BLOOD,URINE NEGATIVE (NEGATIVE); PROTEIN,URINE 100 mg/dL (NEGATIVE); UROBILINOGEN,URINE 0.2 (NORMAL) E.U./dL (NORMAL)
[2018-09-12 18:41] LABS: BACTERIA,URINE None Seen /HPF (None Seen); CASTS, URINE 3-5 Hyaline Casts /LPF; CLARITY,URINE CLEAR (CLEAR); RBC,URINE None Seen /HPF (0-5); SQUAMOUS EPITHELIAL CELL,UR NONE SEEN (<= Few)
[2018-09-14 14:23] LABS: COMPLEMENT COMPONENT C3C 137 mg/dL; COMPLEMENT COMPONENT C4C 34 mg/dL
== END 2018-09-12 07:16 | disposition home or self-care (01) ==
LOC: LAB.F 07:15
PROVIDERS: ATTEND Internal Medicine Nephrology
DX: D64.9 Anemia, unspecified (principal); E87.6 Hypokalemia; I12.9 Hypertensive chronic kidney disease with stage 1 through stage 4 chronic kidney disease, or unspecified chronic kidney disease; N18.3 Chronic kidney disease, stage 3 (moderate)
CPT/HCPCS: 36415; 80069; 81001; 81599; 82570; 84153; 84156; 86160; 86334

== ENCOUNTER 2018-10-31 | Outpatient (CLI) | payer MEDICARE, OTHER | END 2018-10-31 13:46 | disposition home or self-care (01) | DX: G47.33 Obstructive sleep apnea (adult) (pediatric) (principal) | CPT/HCPCS: 99213; G0463; 99212 ==

== ENCOUNTER 2018-11-02 07:23 | Outpatient (CLI) | payer MEDICARE, OTHER ==
[2018-11-02 10:54] LABS: ALBUMIN 3.6 g/dL (3.2-5.5); ALBUMIN/GLOBULIN RATIO 1.1 (1.0-2.2); ALKALINE PHOSPHATASE 62 IU/L (42-121); ALT ALANINE AMINOTRANSFERASE 14 IU/L (10-60); AST ASPARTATE AMINOTRANSFERASE 18 IU/L (10-42); BILIRUBIN,TOTAL 0.6 mg/dL (0.2-1.0); BUN - BLOOD UREA NITROGEN 26 mg/dL (6-20); CALCIUM 8.8 mg/dL (8.5-10.3); CARBON DIOXIDE - CO2 24 mmol/L (21-32); CHLORIDE 110 mmol/L (101-111); CHOL/HDL RATIO 2.8 (<5.0); CHOLESTEROL 141 mg/dL; CREATININE 1.8 mg/dL (0.6-1.2); GFR - MDRD 36 (>89); GLUCOSE 92 mg/dL (70-100); HDL CHOLESTEROL 51 mg/dL; LDL CHOLESTEROL,CALCULATED 75 mg/dL; LDL/HDL RATIO 1.5 (<3.6); SODIUM 142 mmol/L (135-145); TOTAL PROTEIN 6.8 g/dL (6.7-8.2); URIC ACID 6.8 mg/dL (2.6-7.2); VLDL CHOLESTEROL 15 mg/dL
== END 2018-11-02 07:24 | disposition home or self-care (01) ==
LOC: LAB.S 07:23
PROVIDERS: ATTEND Physician Assistant Medical
DX: I10 Essential (primary) hypertension (principal); E78.00 Pure hypercholesterolemia, unspecified; M10.9 Gout, unspecified
CPT/HCPCS: 36415; 80053; 80061; 83721; 84550

== ENCOUNTER 2019-01-02 07:29 | Outpatient (CLI) | payer MEDICARE, OTHER | END 2019-01-02 07:30 | disposition home or self-care (01) | LOC: LAB.S 07:29 | PROVIDERS: ATTEND Urology | DX: C61 Malignant neoplasm of prostate (principal) | CPT/HCPCS: 36415; 84153 ==

== ENCOUNTER 2019-01-10 14:40 | Outpatient (CLI) | payer MEDICARE, OTHER ==
--- NOTE | 2019-01-10 17:21 | SLEEP CARE CONSULTATION ---
Information from patient questionnaire entered by Mary Garcia. I have reviewed and concur with the information entered by Mary Garcia. This document represents the service I personally performed and the decisions made by me, Shereen Tim MD, [facility]. History of Present Illness Previous diagnosis: Severe, Obstructive Sleep Apnea-Hypopnea Syndrome AHI: 56.8 Reason for CPAP/BiPAP follow up: other (2 month) Equipment type: CPAP Equipment obtained from: [employer] Mask style: Full face Mask brand: Respironics HPI additional information: HPI: Mr. Dejesus is an 87 year old gentleman who diagnosed with severe obstructive sleep apnea-hypopnea here in 2009. His AHI was 56.8 and courtney oxygen saturation of 80%. He was prescribed a new machine 5 months ago. He continues to use his CPAP every night and all night. The compliance data show usage in 56 out of the past 60 nights, averaging 9.6 hours a night. The residual AHI is 14.4 (was 25.1) and average time in large leak per day is 1.4 hours (was 16 minutes). He wears a ResMed AirFit F-20 full face mask. On the CPAP therapy he notices improvement in his sleep quality, and that he wakes up feeling fresher in the morning and more awake/alert during the day. His notices some snore through the CPAP. The 90th percentile pressure is 10.3 cmH2 O. CPAP Compliance Data - Data Reviewed with Patient Average duration of nightly device use: 10.4 Compliance rate %: 93.3 (60 days) Current pressure setting (cmH2O): 8-12 Humidity settin Heated hose settin Average residual AHI: 14.4 Average large leak: 1 hr 24 mins 13 sec Subjective Patient concerns: reports: air blowing in eyes, condensation in mask/hose, dry mouth, nose, throat Initial [place] Sleepiness Scale score: 10 Current [place] Sleepiness Scale score: 10 Allergies and Home Medications Drug allergies reviewed: Yes Home medication list reviewed: Yes Review of Systems Review of systems same as previous: Yes Physical Exam Weight: 189 lb Impression and Plan IMPRESSION: 1. Obstructive Sleep Apnea-Hypopnea Syndrome, severe, with the patient doing fairly well on nasal CPAP therapy. He has excellent compliance and significant clinical improvement. The current pressure, however, appears slightly ineffective. But the elevated residual AHI may be from excessive mask air leak. I will prescribe him with a different full face mask. If the air leak and residual AHI continue to be high, another manual CPAP/BiPAP titration study will be ordered (his last sleep study was almost 10 years ago). PLAN: 1. Continue with autoCPAP set at 8 - 12 cmH2O. 2. Prescription made for a ResMed F30 full face mask. This will also reduce the chance of air leaking into his injured eye. The mask will have to be fitted by [employer]. 3. Return for follow up in 3 months. If the residual AHI remains high, another manual CPAP/BiPAP titration study will be performed. I spent 100% of this 20 minute visit face to face with the patient with greater than 50% of this was spent time counseling the patient and coordination of care.
== END 2019-01-10 14:41 | disposition home or self-care (01) ==
LOC: SC 14:40
PROVIDERS: ATTEND Internal Medicine Pulmonary Disease
DX: G47.33 Obstructive sleep apnea (adult) (pediatric) (principal)
CPT/HCPCS: 99213; G0463; 99212

== ENCOUNTER 2019-03-27 07:45 | Outpatient (CLI) | payer MEDICARE, OTHER ==
[2019-03-27 10:33] LABS: BASOPHILS # (AUTO) 0.1 10^3/uL (0.0-0.1); BASOPHILS % (AUTO) 0.8 %; EOSINOPHILS # (AUTO) 0.3 10^3/uL (0.0-0.7); EOSINOPHILS % (AUTO) 4.2 %; HGB - HEMOGLOBIN 10.1 g/dL (14.0-18.0); LYMPHOCYTES # (AUTO) 1.2 10^3/uL (1.5-3.5); MEAN CORPUSCULAR HEMOGLOBIN 29.9 pg (27.0-31.0); MEAN CORPUSCULAR HGB CONC 31.6 g/dL (32.0-36.0); MEAN CORPUSCULAR VOLUME 94.7 fL (80.0-94.0); MEAN PLATELET VOLUME 9.7 fL (7.4-11.4); MONOCYTES # (AUTO) 0.7 10^3/uL (0.0-1.0); MONOCYTES % (AUTO) 10.2 %; NEUTROPHILS # (AUTO) 4.8 10^3/uL (1.5-6.6); NEUTROPHILS % (AUTO) 67.4 %; PLT - PLATELET COUNT 199 10^3/uL (130-450); RED BLOOD COUNT 3.38 10^6/uL (4.70-6.10); RED CELL DISTRIBUTION WIDTH 13.6 % (12.0-15.0); WHITE BLOOD COUNT 7.1 x10^3/uL (4.8-10.8)
[2019-03-27 10:35] LABS: BILIRUBIN,URINE NEGATIVE (NEGATIVE); GLUCOSE, URINE (UA) NEGATIVE (NEGATIVE); KETONES,URINE (UA) NEGATIVE (NEGATIVE); LEUKOCYTE ESTERASE, URINE NEGATIVE (NEGATIVE); NITRITE,URINE NEGATIVE (NEGATIVE); OCCULT BLOOD,URINE TRACE-INTA (NEGATIVE); PH,URINE 5.5 PH (5.0-7.5); PROTEIN,URINE 100 mg/dL (NEGATIVE); UROBILINOGEN,URINE 0.2 (NORMAL) E.U./dL (NORMAL)
[2019-03-27 10:40] LABS: CLARITY,URINE CLEAR (CLEAR)
[2019-03-27 10:43] LABS: ALBUMIN 3.8 g/dL (3.2-5.5); CALCIUM 8.9 mg/dL (8.5-10.3); CREATININE 1.7 mg/dL (0.6-1.2)
[2019-03-27 10:50] LABS: BACTERIA,URINE None Seen /HPF (None Seen); CASTS, URINE 0-2 Hyaline Casts /LPF; RBC,URINE None Seen /HPF (0-5); SQUAMOUS EPITHELIAL CELL,UR RARE Squamous (<= Few)
[2019-03-27 11:28] LABS: CREATININE,URINE 112.3 mg/dL; PROTEIN/CREATININE RATIO,URINE 1.2 (<=0.2)
== END 2019-03-27 07:46 | disposition home or self-care (01) ==
LOC: LAB.S 07:45
PROVIDERS: ATTEND Urology
DX: C61 Malignant neoplasm of prostate (principal); M10.9 Gout, unspecified; D64.9 Anemia, unspecified; N18.3 Chronic kidney disease, stage 3 (moderate); E87.6 Hypokalemia
CPT/HCPCS: 36415; 80069; 81001; 81003; 81599; 82570; 84153; 84156; 85025; 86334; 87086

== ENCOUNTER 2019-04-10 09:24 | Outpatient (CLI) | payer MEDICARE, OTHER ==
--- NOTE | 2019-04-11 12:10 | SLEEP CARE CONSULTATION ---
Information from patient questionnaire entered by Crista Guzman. I have reviewed and concur with the information entered by Crista Guzman. This document represents the service I personally performed and the decisions made by me, Shereen Tim MD, [facility]. History of Present Illness Previous diagnosis: Severe, Obstructive Sleep Apnea-Hypopnea Syndrome AHI: 56.8 Reason for follow up: three month Equipment type: CPAP Equipment obtained from: [employer] Prior sleep studies: Yes Year and Where: 2009 [facility] HPI additional information: HPI: Mr. Dejesus is an 87 year old gentleman who diagnosed with severe obstructive sleep apnea-hypopnea here in 2009. His AHI was 56.8 and courtney oxygen saturation of 80%. He was prescribed a new machine last year. The pressure was raised due to elevated residual AHI of 25.1. He continues to use his CPAP every night and all night. he compliance data show usage in 90 out of the past 90 nights, averaging 10.6 hours a night. The residual AHI is now 13 and average time in large leak per day is 20 minutes. He wears a full face mask. On the CPAP therapy he notices improvement in his sleep quality, and that he wakes up feeling fresher in the morning and more awake/alert during the day. His notices some snore through the CPAP. The 90th percentile pressure is 11.5 cmH2O. CPAP Compliance Data - Data Reviewed with Patient Average duration of nightly device use: 10h 30m Compliance rate %: 100 Current pressure setting (cmH2O): 8-12 Humidity setting: off Heated hose setting: off Average residual AHI: 13.1 Average large leak: 20m 22s Subjective Patient concerns: reports: air blowing in eyes, condensation in mask/hose, nasal congestion, dry mouth, nose, throat Initial [place] Sleepiness Scale score: 10 Current [place] Sleepiness Scale score: 9 Allergies and Home Medications Drug allergies reviewed: Yes Home medication list reviewed: Yes Review of Systems Review of systems same as previous: Yes Physical Exam Weight: 188 lb Impression and Plan IMPRESSION: 1. Obstructive Sleep Apnea-Hypopnea Syndrome, severe, with the patient doing fairly well on nasal CPAP therapy. He has excellent compliance and significant clinical improvement. The current pressure appears more effective but still inadequate. He has not gotten a different mask. [facility] but that mask causes an indentation on his head. PLAN: 1. Continue with autoCPAP set at 8 - 12 cmH2O. 2. Repeat manual CPAP/BiPAP titration study to find the optimal pressure setting. We will also try fit him with a different full face mask during the study. 3. Return for follow up after the titration study. 4. Prescription made for CPAP supplies so that he may switch durable medical supplier. I spent 100% of this visit face to face with the patient with greater than 50% of this was spent time counseling the patient and coordination of care.
== END 2019-04-10 09:25 | disposition home or self-care (01) ==
LOC: SC 09:24
PROVIDERS: ATTEND Internal Medicine Pulmonary Disease
DX: G47.33 Obstructive sleep apnea (adult) (pediatric) (principal)
CPT/HCPCS: 99214; G0463; 99212

== ENCOUNTER 2019-05-10 19:20 | Outpatient (CLI) | payer MEDICARE, OTHER | END 2019-05-10 19:21 | disposition home or self-care (01) | LOC: SC 19:20 | PROVIDERS: ATTEND Internal Medicine Pulmonary Disease | DX: G47.33 Obstructive sleep apnea (adult) (pediatric) (principal); I44.1 Atrioventricular block, second degree | CPT/HCPCS: 95811 ==

== ENCOUNTER 2019-05-24 11:21 | Outpatient (CLI) | payer MEDICARE, OTHER ==
[2019-05-24 12:30] VITALS: BP 140/68
--- NOTE | 2019-05-24 12:30 | SLEEP CARE CONSULTATION ---
Information from patient questionnaire entered by Mary Garcia. I have reviewed and concur with the information entered by Mary Garcia. This document represents the service I personally performed and the decisions made by me, Shanda Palacio, RN, MSN, [employer]. History of Present Illness Previous diagnosis: Severe, Obstructive Sleep Apnea-Hypopnea Syndrome AHI: 56.8 Reason for follow up: one month, with manual titration Accompanied by: Spouse Equipment type: CPAP Equipment obtained from: [employer] Mask style: Full face (Natali View) Mask brand: Respironics Backup mask available: Yes (F& P caused more mask leaks into eyes ) Last cushion change: unknown Sleep Study - Results Polysomnography/Home Sleep Study results: The quality of the study is good. CPAP was initiated at 4 cmH2O and titrated up to CPAP at 16 cmH2O. CPAP at 14 cmH2O appeared to be optimal (AHI of 1.8 per hour on the pressure). There was supine REM sleep on the pressure. Oxygen saturation was normal throughout the night. Lower CPAP settings allowed frequent residual respiratory events. The patient appeared to have tolerated positive airway pressure therapy fairly well. The patients sleep efficiency was reduced due to two prolonged awakenings after the sleep onset. The sleep architecture was abnormal for sleep fragmentation and reduced amount of time spent in slow wave sleep (N3). There was no significant periodic leg movement of sleep. Cardiac rhythm was normal sinus rhythm with rare 2nd degree Mobitz type II A-V block.. No abnormal behavior (parasomnia) observed during the night. CPAP Compliance Data - Data Reviewed with Patient Average duration of nightly device use: 10.1 Compliance rate %: 96.7 Current pressure setting (cmH2O): 8-12 Humidity settin Heated hose settin Average residual AHI: 25.9 Central apnea: 2.0 Obstructive apnea: 5.4 Hypopnea: 18.6 Average large leak: 3 hr 30 min 33 sec Subjective Missed days of use due to: reports: other (sleep study ) Patient concerns: reports: air blowing in eyes, dry mouth, nose, throat, other (headgear leaves jara/dents on my head). denies: aerophagia, mask discomfort, mask leak noise, condensation in mask/hose, nasal congestion, epistaxis Observed to snore while using device: Yes Current pressure setting perceived as: comfortable On therapy, patient: reports: sleeping better, more rested overall Initial [place] Sleepiness Scale score: 13 Current [place] Sleepiness Scale score: 6 Allergies and Home Medications Known drug allergies: No Home medication list reviewed: Yes Allergy and home medication list: amlodipine 10mg daily plavix 1 tab daily ( replaced warfarin) potassium chloride 1 tab daily metoprolol 1 tab daily Lisinopril 1 tab daily furosemide 1 tab daily Advair diskus 1 puff daily Vitamin B12 500mcg daily calcium / vitamin D / Vit K 1 table daily Atorvastatin 20mg daily Review of Systems Review of systems same as previous: Yes Physical Exam Blood Pressure: 140/68 Cuff size: long Heart Rate: 68 O2 Saturation: 98 Height: 5 ft 4 in Weight: 193 lb Weight change since last visit: gained 5 pounds Body Mass Index: 33.1 BMI Classification: Obese Impression and Plan 1. Obstructive Sleep Apnea-Hypopnea Syndrome, severe, with good treatment compliance and elevated residual on current CPAP pressure. On CPAP therapy, the patient has better sleep quality and is more rested overall. The CPAP pressure will be changed to [id number]. I showed patient how to use the ramp to start on lower pressure on sample device and will change ramp setting to his current starting pressure that he is comfortable with. He is to contact me if the pressure change is uncomfortable. He is not pleased with the new mask style given at the sleep study as it leaks more air into his left eye where recent surgery. He was given a list of masks to try by small engine technician and will call the list. He does not sleep on his side so a CPAP pillow was not shown but discussed with rationale. I will order a mask refitting. Until then To reduce mask leaks, he was advised to clean mask daily instead of every other day to improve mask seal and adjust headgear. I also showed him mask cloth barriers to see if this would reduce mask headgear indentation into skull. Pad a cheek pamphlet given. To reduce oral dryness, i advised to try water in reservoir at zero setting. Use of high humidity in past caused congestion. Patient's apnea severity and rationale for treatment to reduce apnea, improve sleep quality and reduce cardiovascular and cerebrovascular events was reviewed. I also reviewed the benefit of consistent device use of CPAP for hypertension, cardiac disease, cerebrovascular disease, . 2. 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 Patient advised to follow up with PCP for further evaluation. Patient and spouse states he goes to a events traffic controller, Dr. Marrero and would l esha to have this report sent to him as well. I will have her call back with physician information. A tracing of arrhythmia will also be attached. * * Change CPAP pressure to 14 cmH2O and ramp to 8cmH20 * mask refitting * Notify me if snoring with mask or feeling that the pressure is too much or too little * Attempt to lose weight * Call this office if any problems using CPAP * Copy of this report to Dr Clay with arrhythmia tracing * Return for follow up in 2 months , or sooner if concerns arise * * Called spouse 16:30 to add to try a eye cover mask to protect eyes until finds a better fitting mask. She left list of masks given by tech of F30 or F20 full face mask and added to new prescription. Patient accidentally took prescription home. An appointment was made with events traffic controller. Time Spent with Patient (minutes): 40 I spent 100% of this visit face to face with the patient with greater than 50% of this was spent time counseling the patient and coordination of care and because of hearing deficit and extra time needed to answer patient and spouse questions.
== END 2019-05-24 11:22 | disposition home or self-care (01) ==
LOC: SC 11:21
PROVIDERS: ATTEND Nurse Practitioner Family
DX: G47.33 Obstructive sleep apnea (adult) (pediatric) (principal); I44.1 Atrioventricular block, second degree; E66.9 Obesity, unspecified; Z68.33 Body mass index [BMI] 33.0-33.9, adult
CPT/HCPCS: 99215; G0463; 99212

== ENCOUNTER 2019-07-27 08:49 | Outpatient (CLI) | payer MEDICARE, OTHER ==
[2019-07-27 09:20] LABS: BASOPHILS # (AUTO) 0.1 10^3/uL (0.0-0.1); BASOPHILS % (AUTO) 0.7 %; EOSINOPHILS # (AUTO) 0.3 10^3/uL (0.0-0.7); EOSINOPHILS % (AUTO) 3.6 %; HGB - HEMOGLOBIN 8.8 g/dL (14.0-18.0); LYMPHOCYTES % (AUTO) 14.2 %; MEAN CORPUSCULAR HEMOGLOBIN 30.7 pg (27.0-31.0); MEAN CORPUSCULAR HGB CONC 32.6 g/dL (32.0-36.0); MEAN CORPUSCULAR VOLUME 94.1 fL (80.0-94.0); MONOCYTES # (AUTO) 0.7 10^3/uL (0.0-1.0); MONOCYTES % (AUTO) 9.9 %; NEUTROPHILS # (AUTO) 5.1 10^3/uL (1.5-6.6); NEUTROPHILS % (AUTO) 71.2 %; PLT - PLATELET COUNT 178 10^3/uL (130-450); RED BLOOD COUNT 2.87 10^6/uL (4.70-6.10); RED CELL DISTRIBUTION WIDTH 14.2 % (12.0-15.0); WHITE BLOOD COUNT 7.2 x10^3/uL (4.8-10.8)
[2019-07-27 09:24] LABS: BILIRUBIN,URINE NEGATIVE (NEGATIVE); GLUCOSE, URINE (UA) NEGATIVE (NEGATIVE); KETONES,URINE (UA) NEGATIVE (NEGATIVE); LEUKOCYTE ESTERASE, URINE NEGATIVE (NEGATIVE); NITRITE,URINE NEGATIVE (NEGATIVE); OCCULT BLOOD,URINE NEGATIVE (NEGATIVE); PROTEIN,URINE 100 mg/dL (NEGATIVE); UROBILINOGEN,URINE 0.2 (NORMAL) E.U./dL (NORMAL)
[2019-07-27 09:32] LABS: BACTERIA,URINE None Seen /HPF (None Seen); CLARITY,URINE CLEAR (CLEAR); RBC,URINE 0-5 /HPF (0-5); SQUAMOUS EPITHELIAL CELL,UR NONE SEEN (<= Few)
[2019-07-27 09:33] LABS: ALBUMIN 3.8 g/dL (3.2-5.5); CALCIUM 8.7 mg/dL (8.5-10.3); CREATININE 1.7 mg/dL (0.6-1.2); PHOSPHORUS 4.4 mg/dL (2.5-4.6)
[2019-07-27 09:42] LABS: CREATININE,URINE 52.9 mg/dL; PROTEIN/CREATININE RATIO,URINE 1.5 (<=0.2)
[2019-07-29 11:45] LABS: COMPLEMENT COMPONENT C3C 130 mg/dL; COMPLEMENT COMPONENT C4C 35 mg/dL
== END 2019-07-27 08:50 | disposition home or self-care (01) ==
LOC: LAB 08:49
PROVIDERS: ATTEND Internal Medicine Nephrology
DX: C61 Malignant neoplasm of prostate (principal); M10.9 Gout, unspecified; D64.9 Anemia, unspecified; N18.3 Chronic kidney disease, stage 3 (moderate); E87.6 Hypokalemia
CPT/HCPCS: 36415; 80069; 81001; 81599; 82570; 84153; 84156; 85025; 86160; 86334; 87086

== ENCOUNTER 2019-08-05 08:00 | Outpatient (CLI) | payer MEDICARE, OTHER | END 2019-08-05 23:59 | disposition home or self-care (01) | LOC: LAB.R 08:00 | PROVIDERS: ATTEND Internal Medicine Critical Care Medicine | DX: D64.9 Anemia, unspecified (principal) | CPT/HCPCS: 82274 ==

== ENCOUNTER 2019-10-02 09:32 | Outpatient (CLI) | payer MEDICARE, OTHER ==
[2019-10-02 10:15] VITALS: BP 160/80
--- NOTE | 2019-10-02 10:15 | SLEEP CARE CONSULTATION ---
Information from patient questionnaire entered by Crista Guzman. I have reviewed and concur with the information entered by Crista Guzman. This document represents the service I personally performed and the decisions made by me, Shanda Palacio, RN, MSN, PHARMACEUTICAL SALES REPRESENTATIVE. History of Present Illness Service Date and Time: 10/02/2019931 Previous diagnosis: Severe, Obstructive Sleep Apnea-Hypopnea Syndrome AHI: 56.8 Reason for follow up: other (2 MONTH) Accompanied by: Spouse Equipment obtained from: [facility] (getting equipment as needed) Mask style: Full face Backup mask available: No (keep current mask as spare when replaced) Last cushion change: a couple of weeks ago Prior sleep studies: Yes Year and Where: 2009 [facility] CPAP Compliance Data - Data Reviewed with Patient Average duration of nightly device use: 9H 8M Compliance rate %: 96.7 Current pressure setting (cmH2O): 14 Heated hose settin Average residual AHI: 25 Central apnea: 0.1 Obstructive apnea: 0.6 Hypopnea: 24.3 Average large leak: 7H 40M Subjective Patient concerns: reports: air blowing in eyes (did not remember to use a eye cover from last visit), mask leak noise, dry mouth, nose, throat (moderate oral dryness most nights - uses water when uses bathroom ). denies: aerophagia, mask discomfort, condensation in mask/hose, nasal congestion, epistaxis Observed to snore while using device: No (rare) Current pressure setting perceived as: too high (intermittently during the night - would like a lower range - using ramp to make comfortable and interrupting sleep) On therapy, patient: reports: other (not sleeping or rested with interruption of sleep due mask pressure ) Initial [place] Sleepiness Scale score: 13 Current [place] Sleepiness Scale score: 14 Allergies and Home Medications Known drug allergies: No Home medication list reviewed: No (no changes except supplements ) Review of Systems Review of systems same as previous: No (removal of benign polys of colon, reeval of aortic anerurysm, anemia worse,) Physical Exam Blood Pressure: 160/80 Cuff size: long Heart Rate: 56 O2 Saturation: 93 Height: 5 ft 4 in Weight: 193 lb Body Mass Index: 33.1 BMI Classification: Obese Impression and Plan 1. Obstructive Sleep Apnea-Hypopnea Syndrome, severe, with good treatment compliance and moderately elevated residual AHI. On CPAP therapy, the patient has disrupted sleep due to mask leaks and air pressure discomfort. For mask leaks, I will order a mask refitting. Until then he is advised to slightly adjust headgear and use eye mask to protect eyes. For his pressure comfort and elevated residual AHI , I will reduce CPAP pressure to [id number] after review of sleep study manual titration results and past pressure ranges in past visits. Patient advised to contact me if pressure change is uncomfortable so that it can be adjusted. Goals for apnea control discussed. Patient reports mask indentations, thus I reminded them of cloth barriers again. This can be researched online and discussed with Aylin. I will also have Aylin adjust humidity and heated hose to reduce oral dryness as no time to discuss at this visit. Patient hard of hearing and communication had to be repeated. Patient's apnea severity and rationale for treatment to reduce apnea, improve sleep quality. 2. Elevated blood pressure, states usually in lower range. Advised to recheck at home with rationale and contact PCP if remains elevated. * [facility] CPAP pressure to 7-12 cmH2O * Mask refitting * Strap covers * Adjust humidity / heated hose. * Notify me if snoring with mask or feeling that the pressure is too much or too little * Call this office if any problems using CPAP * Return for follow up in 1-2 months , or sooner if concerns arise Visit Type: In Office Time Spent with Patient (minutes): 40 - hard of hearing uses hearing aides Provider Statement: I spent 100% of the Face to Face Visit with the patient with greater than 50% spent counseling the patient and coordination of care.
== END 2019-10-02 09:33 | disposition home or self-care (01) ==
LOC: SC 09:32
PROVIDERS: ATTEND Nurse Practitioner Family
DX: G47.33 Obstructive sleep apnea (adult) (pediatric) (principal); E66.9 Obesity, unspecified; Z68.33 Body mass index [BMI] 33.0-33.9, adult
CPT/HCPCS: 99215; G0463; 99212